=== PATIENT | female | born 2000 | race Caucasian/White ===

== ENCOUNTER 2019-02-28 11:05 | Emergency (ER) | payer BC ==
[2019-02-28 13:01] LABS: Bilirubin Negative (Negative); Blood, Urine Negative (Negative); Clarity Clear (Clear); Glucose, Urine (Dipstick) Normal (Negative); Leukocyte Negative Leu/uL (Negative); Nitrite Negative (Negative); Protein, Urine (Dipstick) Negative (Neg-Trace)
[2019-02-28 13:04] LABS: Pregnancy Test - Urine (BHCG) Negative (Negative); Pregu Control Background? CLEAR/WHITE (CLR/WHITE); Pregu Control Bar Appear? YES (CONTROL BAR); Specific Gravity 1.024 (1.002-1.036)
[2019-02-28] MEDS ORDERED: cefTRIAXone\\ROCEPHIN 250 MG VIAL ONE (13:30)
[2019-02-28] MEDS ORDERED: Lidocaine 1% PF 5 ML VIAL ONE (13:31)
[2019-02-28] MEDS ORDERED: Azithromycin 250 MG TAB ONE (13:31)
[2019-03-01 22:53] LABS: Chlamydia by PCR Not Detected (NotDetected); GC by PCR Not Detected (NotDetected)
== END 2019-02-28 13:58 | disposition home or self-care (01) ==
LOC: ERS 11:05
DX: N89.8 Other specified noninflammatory disorders of vagina (principal); F41.9 Anxiety disorder, unspecified; F17.210 Nicotine dependence, cigarettes, uncomplicated; Z71.6 Tobacco abuse counseling
CPT/HCPCS: 81003; 81025; 87480; 87491; 87510; 87591; 87660; 96372; 99406; J0696; J2001